=== PATIENT | female | born 1970 | race Caucasian/White ===

== ENCOUNTER 2017-12-06 15:03 | Emergency (ER) | payer OTHER ==
--- NOTE | 2017-12-06 15:16 | ED PDOC ---
Arrival/HPI - General Historian: Patient <Kaylah Ford - Last Filed: 12/06/17 16:54> <Jozef Almaguer - Last Filed: 12/06/17 17:19> - General Time Seen by Provider: 12/06/17 15:15 - History of Present Illness Narrative History of Present Illness (Text): 12/06/17 16:35 Pt is a 47 year old female who complains of right and left axillary pain and swelling for the past week. Says she noticed the swelling mostly if the right but is now seeing a sore develop on the left as well. Denied discharge from the site, fever, chills, n/v/d extremity numbness or change in motor and nerve function. No PMD. (Kaylah Ford) Family/Social History Family/Social History: Unknown Family HX <Jozef Almaguer - Last Filed: 12/06/17 17:19> Allergies/Home Meds <LilianaKaylah Arora - Last Filed: 12/06/17 16:54> <Jozef Almaguer - Last Filed: 12/06/17 17:19> Allergies/Adverse Reactions: Allergies No Known Allergies Allergy (Verified 12/06/17 15:35) Review of Systems - Review of Systems Constitutional: Normal Eyes: Normal ENT: Normal Respiratory: Normal Cardiovascular: Normal Gastrointestinal: Normal Genitourinary Female: Normal Musculoskeletal: Normal Skin: Normal, Abscess (B/l axillae) Neurological: Normal Endocrine: Normal Hemo/Lymphatic: Normal Psychiatric: Normal <Maria Teresa Fordmir Arora - Last Filed: 12/06/17 16:54> Physical Exam Vital Signs Reviewed: Yes Temperature: Afebrile Blood Pressure: Normal Pulse: Regular Respiratory Rate: Normal Appearance: Positive for: Well-Appearing, Non-Toxic, Comfortable Pain Distress: None Mental Status: Positive for: Alert and Oriented X 3 - Systems Exam Head: Present: Atraumatic, Normocephalic Pupils: Present: PERRL Extroacular Muscles: Present: EOMI Conjunctiva: Present: Normal Mouth: Present: Moist Mucous Membranes Neck: Present: Normal Range of Motion Respiratory/Chest: Present: Clear to Auscultation, Good Air Exchange. No: Respiratory Distress, Accessory Muscle Use Cardiovascular: Present: Regular Rate and Rhythm, Normal S1, S2. No: Murmurs Abdomen: No: Tenderness, Distention, Peritoneal Signs Breast/Axillary: Present: Axillary Lymphad, Erythema, Fluctuance, Swelling ( right axilla, purulent material on inspection;Left axilla with sml raised nodule , erythematous non-fluctuant) Back: Present: Normal Inspection Upper Extremity: Present: Normal Inspection. No: Cyanosis, Edema Lower Extremity: Present: Normal Inspection. No: Edema Neurological: Present: GCS=15, CN II-XII Intact, Speech Normal Skin: Present: Warm, Dry, Normal Color. No: Rashes Psychiatric: Present: Alert, Oriented x 3, Normal Insight, Normal Concentration <Kaylah Ford - Last Filed: 12/06/17 16:54> Vital Signs Temp Pulse Resp BP Pulse Ox 12/06/17 15:36 98.3 F 86 18 138/97 H 99 Medical Decision Making <Kaylah Ford - Last Filed: 12/06/17 16:54> <Jozef Almaguer - Last Filed: 12/06/17 17:19> ED Course and Treatment: 12/06/17 16:39 Pt is a 47 year old female who complains of right and left axillary pain and swelling for the past week. Plan I&D of the right axilla Keflex STAT assess and dispo Progress Note 12/06/17 16:57 I&D Indication: Abscess of the right axilla Location: R axilla Preparation: The area was prepped and draped in the usual sterile fashion and was cleansed with cyclohexadine.~ Local infiltration of Lidocaine 1% was used for anesthesia.~ Procedure: ~The most fluctuant portion of the abscess was incised with a #11 scalpel. ~ Approximately 2mL of purulent material was obtained.~ The abscess was packed with 1/2" iodofrom stre[ip.~ A light dressing was applied. ~ Post-Procedure: ~On exam the abscess is notably less fluctuant.~ The patient tolerated the procedure well, and there were no complications. Cultured: YES Pt was very hypersensitive to pressure after the area was infiltrated extensively with lidocaine 1%. Pt hyperventilated followed by a vasovagal response. Nurse Tanesha was available to assist and calm the pt. Pt tolerated the procedure. Keflex 500 mg PO given along w Tylenol for pain Explained dc instructions and wound care to pt and her spouse. Pt needs to return in 2 days for wound check. (Kaylah Ford) - Medication Orders Current Medication Orders: Discontinued Medications Acetaminophen (Tylenol 325mg Tab) 650 mg PO STAT STA Stop: 12/06/17 16:42 Last Admin: 12/06/17 16:55 Dose: 650 mg MAR Pain/Vitals Document 12/06/17 16:55 HI (Rec: 12/06/17 16:55 HI [id number]) Pain Reassessment Is This A Pain ReAssessment? No Presence of Pain Presence of Pain Yes Cephalexin Monohydrate (Keflex) 500 mg PO STAT STA PRN Reason: Protocol Stop: 12/06/17 16:41 Last Admin: 12/06/17 16:55 Dose: 500 mg - Procedure PROCEDURE NOTE (Text): 12/06/17 16:54 I&D Indication: Abscess of the right axilla Location: R axilla Preparation: The area was prepped and draped in the usual sterile fashion and was cleansed with cyclohexadine.~ Local infiltration of Lidocaine 1% was used for anesthesia.~ Procedure: ~The most fluctuant portion of the abscess was incised with a #11 scalpel. ~ Approximately 2mL of purulent material was obtained.~ The abscess was packed with 1/2" iodofrom stre[ip.~ A light dressing was applied. ~ Post-Procedure: ~On exam the abscess is notably less fluctuant.~ The patient tolerated the procedure well, and there were no complications. Cultured: YES (Kaylah Ford) - PA / CORRECTIONAL SERGEANT / Resident Statement MD/DO has examined the patient and agrees with the treatment plan. <Jozef Almaguer - Last Filed: 12/06/17 17:19> Disposition/Present on Arrival - Present on Arrival Any Indicators Present on Arrival: Yes - Disposition Have Diagnosis and Disposition been Completed?: Yes Disposition Time: 16:44 Patient Plan: Discharge <Kaylah Ford - Last Filed: 12/06/17 16:54> <Jozef Almaguer - Last Filed: 12/06/17 17:19> - Disposition Diagnosis: Abscess Disposition: HOME/ ROUTINE Condition: GOOD Discharge Instructions (ExitCare): Boil, Abscess Incision and Drainage (DC) Additional Instructions: Dear Tabatha, Please return to the Emergency department in the next 2 days to have your wound packing removed. You have been given an antibiotic that will prevent the spread of the infection. A wound culture was also taken that will give us an idea of the specific bacteria that caused this infection. If you experience any alarming change in your symptoms in the next 24 hrs, return to the ER for evaluation. All the LAURA wheeler Prescriptions: Cephalexin [Keflex] 500 mg PO Q6 5 Days #20 cap Ibuprofen [Motrin Tab] 600 mg PO Q6 PRN 5 Days #20 tab PRN Reason: pain/fever Referrals: Jessica Bernstein MD [Primary Care Provider] - Follow up with primary Forms: WORK NOTE
[2017-12-06 15:37] VITALS: BP 138/97; PULSE 86; RESP 18; TEMP 98.3; O2SAT 99; BMI 27.8
== END 2017-12-06 17:00 | disposition home or self-care (01) ==
LOC: ED 15:03
DX: L02.411 Cutaneous abscess of right axilla (principal)

== ENCOUNTER 2017-12-09 14:26 | Emergency (ER) | payer SELFPAY ==
[2017-12-09 14:26] VITALS: BMI 27.8
[2017-12-09 15:00] VITALS: BP 135/79; PULSE 91; RESP 16; TEMP 98; O2SAT 97
--- NOTE | 2017-12-09 15:13 | ED PDOC ---
Arrival/HPI - General Chief Complaint: Wound Check Time Seen by Provider: 12/09/17 15:09 Historian: Patient - History of Present Illness Narrative History of Present Illness (Text): 12/09/17 15:10 47yo female with no Past medical history present to Emergency department for packing removal from her right axillae. stats packing was placed her on Wednesday s /p I & D. she denies fever, chills, any other complaint. She is currently on abx. Past Medical History - Provider Review Nursing Documentation Reviewed: Yes - Cardiac Hx Cardiac Disorders: No - Pulmonary Hx Respiratory Disorders: No - Neurological Hx Neurological Disorder: No - HEENT Hx HEENT Disorder: No - Renal Hx Renal Disorder: No - Endocrine/Metabolic Hx Endocrine Disorders: No - Hematological/Oncological Hx Blood Disorders: No - Integumentary Hx Dermatological Disorder: Yes Other/Comment: ABSCESS - Musculoskeletal/Rheumatological Hx Musculoskeletal Disorders: No - Gastrointestinal Hx Gastrointestinal Disorders: No - Genitourinary/Gynecological Hx Genitourinary Disorders: No - Psychiatric Hx Psychophysiologic Disorder: No Hx Substance Use: No - Surgical History Hx Appendectomy: Yes Family/Social History - Physician Review Nursing Documentation Reviewed: Yes Family/Social History: Unknown Family HX Smoking Status: Never Smoked Hx Alcohol Use: No Hx Substance Use: No Allergies/Home Meds Allergies/Adverse Reactions: Allergies No Known Allergies Allergy (Verified 12/09/17 14:39) Review of Systems - Physician Review All systems were reviewed & negative as marked: Yes - Review of Systems Constitutional: Normal Eyes: Normal ENT: Normal Respiratory: Normal Cardiovascular: Normal Gastrointestinal: Normal Genitourinary Female: Normal Musculoskeletal: Normal Skin: Other (Packing removal) Neurological: Normal Endocrine: Normal Hemo/Lymphatic: Normal Psychiatric: Normal Physical Exam Vital Signs Reviewed: Yes Vital Signs Temp Pulse Resp BP Pulse Ox 12/09/17 14:41 98.0 F 91 H 16 135/79 97 Temperature: Afebrile Blood Pressure: Normal Pulse: Regular Respiratory Rate: Normal Appearance: Positive for: Well-Appearing, Non-Toxic, Comfortable Pain Distress: None Mental Status: Positive for: Alert and Oriented X 3 - Systems Exam Head: Present: Atraumatic, Normocephalic Pupils: Present: PERRL Extroacular Muscles: Present: EOMI Conjunctiva: Present: Normal Mouth: Present: Moist Mucous Membranes Neck: Present: Normal Range of Motion Respiratory/Chest: Present: Clear to Auscultation, Good Air Exchange. No: Respiratory Distress, Accessory Muscle Use Cardiovascular: Present: Regular Rate and Rhythm, Normal S1, S2. No: Murmurs Abdomen: No: Tenderness, Distention, Peritoneal Signs Back: Present: Normal Inspection Upper Extremity: Present: Normal Inspection. No: Cyanosis, Edema Lower Extremity: Present: Normal Inspection. No: Edema Neurological: Present: GCS=15, CN II-XII Intact, Speech Normal Skin: Present: Warm, Dry, Normal Color, Other (Dressing noted in place on her right axillae). No: Rashes Psychiatric: Present: Alert, Oriented x 3, Normal Insight, Normal Concentration Medical Decision Making ED Course and Treatment: 12/09/17 23:41 PT was hemodynamically stable in Emergency department. Packing was removed form right axillae and redressed. Disposition/Present on Arrival - Present on Arrival Any Indicators Present on Arrival: No History of DVT/PE: No History of Uncontrolled Diabetes: No Urinary Catheter: No History of Decub. Ulcer: No History Surgical Site Infection Following: None - Disposition Have Diagnosis and Disposition been Completed?: Yes Diagnosis: Wound check, abscess Disposition: HOME/ ROUTINE Disposition Time: 15:15 Patient Plan: Discharge Condition: STABLE Discharge Instructions (ExitCare): Wound Care Additional Instructions: Follow up with your Doctor Return to Emergency department for any new or worsening Referrals: Jsesica Bernstein MD [Primary Care Provider] - Follow up with primary Forms: [employer] (Albanian)
== END 2017-12-09 15:34 | disposition home or self-care (01) ==
LOC: ED 14:26
DX: Z51.89 Encounter for other specified aftercare (principal); L02.411 Cutaneous abscess of right axilla

== ENCOUNTER 2018-01-16 17:52 | Emergency (ER) | payer SELFPAY ==
[2018-01-16 17:52] VITALS: BMI 27.8
[2018-01-16 18:35] VITALS: TEMP 97.8; O2SAT 99
[2018-01-16] MEDS ORDERED: Tmp-Smz 800 mg-160 mg DS Tab PO STA (19:25)
--- NOTE | 2018-01-16 19:34 | ED PDOC ---
Arrival/HPI - General Chief Complaint: Abnormal Skin Integrity Time Seen by Provider: 01/16/18 19:24 Historian: Patient - History of Present Illness Narrative History of Present Illness (Text): 01/16/18 19:31 47yo female with no Past medical history who present with b/l axillae abscess x 3days. States she applied warm compress to the area. She also report history of abscess to her axillae, states it was I & D then, but she don't want it to be incised today. she also report thick whitish vaginal discharge with itching. States she was treated for candidiasis, but she have the symptom again x days. Denies fever, chills, nausea, vomiting, urinary symptoms, any other complaint. Past Medical History - Provider Review Nursing Documentation Reviewed: Yes - Cardiac Hx Cardiac Disorders: No - Pulmonary Hx Respiratory Disorders: No - Neurological Hx Neurological Disorder: No - HEENT Hx HEENT Disorder: No - Renal Hx Renal Disorder: No - Endocrine/Metabolic Hx Endocrine Disorders: No - Hematological/Oncological Hx Blood Disorders: No - Integumentary Hx Dermatological Disorder: Yes Other/Comment: ABSCESS - Musculoskeletal/Rheumatological Hx Musculoskeletal Disorders: No - Gastrointestinal Hx Gastrointestinal Disorders: No - Genitourinary/Gynecological Hx Genitourinary Disorders: No - Psychiatric Hx Psychophysiologic Disorder: No Hx Substance Use: No - Surgical History Hx Appendectomy: Yes Family/Social History - Physician Review Nursing Documentation Reviewed: Yes Family/Social History: Unknown Family HX Smoking Status: Never Smoked Hx Alcohol Use: No Hx Substance Use: No Allergies/Home Meds Allergies/Adverse Reactions: Allergies No Known Allergies Allergy (Verified 01/16/18 18:29) Review of Systems - Physician Review All systems were reviewed & negative as marked: Yes - Review of Systems Constitutional: Normal Eyes: Normal ENT: Normal Respiratory: Normal Cardiovascular: Normal Gastrointestinal: Normal Genitourinary Female: Vaginal Discharge Musculoskeletal: Normal Skin: Abscess (B/L axillae) Neurological: Normal Endocrine: Normal Hemo/Lymphatic: Normal Psychiatric: Normal Physical Exam Vital Signs Reviewed: Yes Vital Signs Temp Pulse Resp BP Pulse Ox 01/16/18 19:52 80 18 131/79 99 01/16/18 18:33 97.8 F 88 16 127/82 99 Temperature: Afebrile Blood Pressure: Normal Pulse: Regular Respiratory Rate: Normal Appearance: Positive for: Well-Appearing, Non-Toxic, Comfortable Pain Distress: None Mental Status: Positive for: Alert and Oriented X 3 - Systems Exam Head: Present: Atraumatic, Normocephalic Pupils: Present: PERRL Extroacular Muscles: Present: EOMI Conjunctiva: Present: Normal Mouth: Present: Moist Mucous Membranes Neck: Present: Normal Range of Motion Respiratory/Chest: Present: Clear to Auscultation, Good Air Exchange. No: Respiratory Distress, Accessory Muscle Use Cardiovascular: Present: Regular Rate and Rhythm, Normal S1, S2. No: Murmurs Abdomen: No: Tenderness, Distention, Peritoneal Signs Genitourinary/Pelvic Exam: Present: Vaginal Discharge (thick whitish discharge in vault) Back: Present: Normal Inspection Upper Extremity: Present: Normal Inspection. No: Cyanosis, Edema Lower Extremity: Present: Normal Inspection. No: Edema Neurological: Present: GCS=15, CN II-XII Intact, Speech Normal Skin: Present: Warm, Dry, Normal Color, Abscess (Approximateoy 2 x 1cm indurated abscess to right axillae and 1 x 1 cm indurated abscess to left axillae). No: Rashes Psychiatric: Present: Alert, Oriented x 3, Normal Insight, Normal Concentration Medical Decision Making - Medication Orders Current Medication Orders: Discontinued Medications Cephalexin Monohydrate (Keflex) 500 mg PO STAT STA PRN Reason: Protocol Stop: 01/16/18 19:25 Last Admin: 01/16/18 19:37 Dose: 500 mg Fluconazole (Diflucan) 150 mg PO ONCE STA PRN Reason: Protocol Stop: 01/16/18 19:56 Tramadol HCl (Ultram) 50 mg PO STAT STA Stop: 01/16/18 19:27 Last Admin: 01/16/18 19:37 Dose: 50 mg MAR Pain Assessment Document 01/16/18 19:37 GMD (Rec: 01/16/18 19:37 GMD [id number]) Pain Reassessment Is this a pain reassessment? No Trimethoprim/Sulfamethoxazole (Bactrim Ds Tab) 1 tab PO STAT STA PRN Reason: Protocol Stop: 01/16/18 19:26 Last Admin: 01/16/18 19:37 Dose: 1 tab Disposition/Present on Arrival - Present on Arrival Any Indicators Present on Arrival: No History of DVT/PE: No History of Uncontrolled Diabetes: No Urinary Catheter: No History of Decub. Ulcer: No History Surgical Site Infection Following: None - Disposition Have Diagnosis and Disposition been Completed?: Yes Diagnosis: Abscesses of both axillae, Vaginal candidiasis Disposition: HOME/ ROUTINE Disposition Time: 19:35 Patient Plan: Discharge Patient Problems: Current Active Problems Problem Status Onset Abscesses of both axillae Acute Condition: STABLE Discharge Instructions (ExitCare): José Miguel (JUAN) Additional Instructions: Follow up with your doctor Return to ED for any new symptoms Prescriptions: Cephalexin [Keflex] 500 mg PO TID #21 capsule Ibuprofen [Motrin Tab] 600 mg PO Q6 #20 tab Sulfamethoxazole/Trimethoprim [Bactrim DS 800 mg-160 mg] 1 tab PO BID #14 tab Referrals: Jessica Bernstein MD [Primary Care Provider] - Follow up with primary Forms: [employer] (Icelandic)
[2018-01-16 19:53] VITALS: BP 131/79; PULSE 80; RESP 18
== END 2018-01-16 20:13 | disposition home or self-care (01) ==
LOC: ED 17:52
DX: B37.3 Candidiasis of vulva and vagina (principal); L02.412 Cutaneous abscess of left axilla; L02.411 Cutaneous abscess of right axilla